=== PATIENT | male | born 1995 | race Caucasian/White ===

== ENCOUNTER 2018-08-09 22:43 | Emergency (ER) | END 2018-08-10 01:01 | disposition home or self-care (01) ==

== ENCOUNTER 2019-01-16 09:03 | Emergency (ER) | payer OTHER ==
[~2019-01-16] VITALS: Wt 89.7 kg
[~2019-01-16 09:03] MED LIST: ALBU8.5H8 INH; CETI10CA PO; GUAI120S25 PO; IBUP-1561 PO; PRED20TA PO
[2019-01-16 09:05] VITALS: BP 150/65; PULSE 95; RESP 20
[2019-01-16] MEDS ORDERED: ALBUTEROL 0.083% (NEB) 2.5 MG/3 ML AMP HHN STA (09:18)
[2019-01-16] MEDS ORDERED: IPRATROPIUM (NEB) 0.5 MG/2.5 ML AMP HHN ONE (09:30)
[2019-01-16] MEDS ORDERED: DEXAMETHASONE 10 MG/ML 1 ML INJ IM ONE (09:30)
[2019-01-16] MEDS ORDERED: LEVALBUTEROL (NEB) 1.25 MG/0.5 ML AMP HHN ONE (10:30)
[2019-01-16] MEDS ORDERED: PRED20TA PO (11:03)
[2019-01-16] MEDS ORDERED: ALBU8.5H8 INH (11:03)
--- NOTE | 2019-01-16 11:08 | ERD ---
ER Documentation Chief Complaint Chief Complaint cough congestion and wheezing for the past 3 days. mild distress no cp HPI 33-year-old male presenting with cough and congestion with wheezing for the last 3 days. Patient has not had an inhaler at home and has not been using medications for his symptoms. He denies any fever has a dry cough. He feels her symptoms are worsening. Denies medical problems. NKDA. Surgical history denies. Social history smokes occasional cigarettes and marijuana daily. ROS All systems reviewed and are negative except as per history of present illness. Medications Home Meds Active Scripts Albuterol Sulfate* (Proair HFA*) 8.5 Gm Hfa.aer.ad, 2 PUFF INH Q4, #1 INHALER Prov:NOAH LALA PA-C 01/16/19 Prednisone* (Prednisone*) 20 Mg Tab, 40 MG PO DAILY for 4 Days, TAB Prov:NOAH LALA PA-C 01/16/19 Prednisone* (Prednisone*) 20 Mg Tab, 60 MG PO DAILY for 5 Days, TAB Prov:KAEL THURSTON NP 08/10/18 Ibuprofen* (Motrin*) 400 Mg Tab, 400 MG PO Q6H PRN for PAIN AND OR ELEVATED TEMP, #30 TAB Prov:KAEL THURSTON NP 08/10/18 Cetirizine Hcl* (Zyrtec*) 10 Mg Capsule, 10 MG PO DAILY, #30 TAB.CHEW Prov:KAEL THURSTON NP 08/10/18 Czafzhpibdq-W-Vzqmzprlvj Hb* (Guaifenesin* DM Syrup) 120 Ml Syrup, 10 ML PO Q4H PRN for COUGH, #120 ML Prov:KAEL THURSTON NP 08/10/18 Albuterol Sulfate* (Proair HFA*) 8.5 Gm Hfa.aer.ad, 2 PUFF INH Q4H PRN for WHEEZING AND SOB, #1 INHALER Prov:KAEL THURSTON NP 08/10/18 Reported Medications [none] Unknown Strength No Conflict Check 08/09/18 Allergies Allergies: Coded Allergies: No Known Allergy (Unverified , 08/09/18) PMhx/Soc Medical and Surgical Hx: pt denies Surgical Hx Hx Respiratory Disorders: Yes (HX OF ASTHMA) Hx Alcohol Use: Yes Hx Substance Use: Yes (MARIJUANA) Hx Tobacco Use: Yes Smoking Status: Never smoker FmHx Family History: No diabetes, No coronary disease, No other Physical Exam Vitals Vital Signs Date Temp Pulse Resp B/P (MAP) Pulse Ox O2 O2 Flow FiO2 Time Delivery Rate 01/16/19 108 20 93 21 10:46 01/16/19 84 20 98 21 09:33 01/16/19 98.8 95 20 150/65 95 09:05 (93) Physical Exam GENERAL: The patient is well-appearing, well-nourished, in no acute distress HEENT: Atraumatic. Conjunctivae are pink. Pupils equal, round, and reactive to light. There is no scleral icterus. Tympanic membranes clear bilaterally. Oropharynx clear. NECK: C-spine is soft and supple. There is no meningismus. There is no cervical lymphadenopathy. CHEST: Clear to auscultation bilaterally. There are no rales, wheezes or rhonchi. HEART: Regular rate and rhythm. No murmurs, clicks, rubs or gallops. Results 24 hrs Current Medications Medications Dose Sig/Andria Start Time Status Last (Trade) Ordered Route PRN Stop Time Admin Dose Reason Admin 10 mg ONCE ONCE 01/16/19 DC 01/16/19 Dexamethasone IM 09:30 09:21 (Decadron) 01/16/19 09:31 Albuterol 10 mg ONCE STAT 01/16/19 DC 01/16/19 (Proventil HHN 09:18 09:32 0.083% (Neb)) 01/16/19 09:19 Ipratropium 1 mg ONCE ONCE 01/16/19 DC 01/16/19 [place] HHN 09:30 09:33 (Atrovent 01/16/19 09:31 0.02% (Neb)) 1.25 mg ONCE ONCE 01/16/19 DC 01/16/19 Levalbuterol HHN 10:30 10:44 (Xopenex 01/16/19 10:31 Neb) Procedures/MDM ER course: Decadron given ED. 1 hour breathing treatment with albuterol and Atr ovent breathing treatment given in ED. Xopenex given. Upon reevaluation patient's wheezing had completely resolved. MDM: 23-year-old male presenting with wheezing. Patient symptoms resolved after breathing treatments given in the ED. I have low suspicion for pneumonia. I have low suspicion for respiratory distress or hypoxia. Patient is discharged with strict ER precautions and told to follow-up with primary care within 1 to 2 days for close evaluation. Patient is told symptoms change or worsen to return immediately to the ER. All questions answered at discharge Departure Diagnosis: Primary Impression: Wheezing Condition: Stable Patient Instructions: Asthma Referrals: [facility] YOU HAVE RECEIVED A MEDICAL SCREENING EXAM AND THE RESULTS INDICATE THAT YOU DO NOT HAVE A CONDITION THAT REQUIRES URGENT TREATMENT IN THE EMERGENCY DEPARTMENT. FURTHER EVALUATION AND TREATMENT OF YOUR CONDITION CAN WAIT UNTIL YOU ARE SEEN IN YOUR DOCTORS OFFICE WITHIN THE NEXT 1-2 DAYS. IT IS YOUR RESPONSIBILITY TO MA KE AN APPOINTMENT FOR FOLOW-UP CARE. IF YOU HAVE A PRIMARY DOCTOR --you should call your primary doctor and schedule an appointment IF YOU DO NOT HAVE A PRIMARY DOCTOR YOU CAN CALL OUR PHYSICIAN REFERRAL HOTLINE AT IF YOU CAN NOT AFFORD TO SEE A PHYSICIAN YOU CAN CHOSE FROM THE FOLLOWING [facility] CL[facility] [address] [facility]. [facility] [address] [facility] [address] [facility] [facility] [address] [facility] [address] [facility]. [facility]. [address] Additional Instructions: FOLLOW UP WITH YOUR PRIMARY CARE PHYSICIAN TOMORROW.Return to this facility if you are not improving as expected. NOAH LALA PA-C January 16, 2019 11:08
== END 2019-01-16 11:06 | disposition home or self-care (01) ==
LOC: FTE 09:03
DX: J45.901 Unspecified asthma with (acute) exacerbation (principal); Z87.891 Personal history of nicotine dependence
CPT/HCPCS: 94644; 94664; 96372; 99285; J1100